=== PATIENT | female | born 1955 | race Caucasian/White ===

== ENCOUNTER → 2016-12-11 | Outpatient (CLI) | payer OTHER ==
[~2016-12-11] MED LIST: ASPIRIN PO; CALCIUM 500 + D1 TAB PO; CERTAGEN PO
--- NOTE | ~2016-12-11 | MY11 ---
[facility] A Service of [facility] RADIOLOGY TEXT RESULTS PATIENT: ROE MAYEN LOCATION: [facility] : 59 UNIT #: [id number] AGE: [address]: Ciara Garrison MD SEX: F ORDER DR: [id number] [place] [id number] O MR#: [id number] Acc #: [id number] NAME: ROE MAYEN : 1955 SEX: F STUDY DATE/TIME: 12/11/2016 15:16 UNIT: [facility] ROOM: STUDY DESCRIPTION: MY Mammogram Screening Dig Tereso Attending Physician: Ciara Garrison M.D. Referring Physician: Ciara Garrison M.D. Ordering Physician: Ciara Garrison M.D. Primary Care Physician: Ciara Garrison M.D. MEDICAL IMAGING REPORT This report is preliminary unless electronic signature is present. EXAM Bilateral Digital Screening Mammogram with CAD INDICATION Breast cancer screening. 61-year-old asymptomatic female who reports a sister with premenopausal breast cancer. COMPARISON 11/09/2015, 10/28/2014, 10/06/2014, 08/25/2013, 08/23/2012, 08/16/2011, 08/12/2010, 08/12/2009, 08/09/2009, 08/05/2008, 07/29/2007. FINDINGS There are scattered fibroglandular tissues. No suspicious findings are present. IMPRESSION No mammographic evidence of malignancy. Annual screening mammography and clinical breast exam are recommended. A result letter will be sent to the patient. Patients over the age of 40 are entered into a reminder system with target due date for the next mammogram. BIRADS: 1 Negative Dictated by... Ruperto Fenton M.D. THIS IS AN ELECTRONICALLY VERIFIED REPORT [facility] A Service [facility] RADIOLOGY TEXT RESULTS PATIENT: ROE MAYEN LOCATION: [facility] : 59 UNIT #: [id number] AGE: [address]: Ciara Garrison MD SEX: F ORDER DR: Ruperto Fenton M.D. at 12/13/2016 10:39 AM BLM/pcl TD: 12/11/2016 19:06 JOB #: [id number] MEDICAL IMAGING REPORT Page 1 of 1
== END | disposition home or self-care (01) ==
LOC: SMAM 14:35
DX: Z12.31 Encounter for screening mammogram for malignant neoplasm of breast (principal); Z80.3 Family history of malignant neoplasm of breast
CPT/HCPCS: G0202